=== PATIENT | male | born 1940 | race Caucasian/White ===

== ENCOUNTER 2017-05-23 13:08 | Emergency (ER) | payer OTHER ==
[~2017-05-23] VITALS: Ht 172.7 cm; Wt 95.2 kg
[2017-05-23] MEDS ORDERED: NORCO 5-325 TA1 EACH PO (13:38)
[2017-05-23] MEDS ORDERED: OMEPRAZOLE20 MG PO (13:38)
[2017-05-23] MEDS ORDERED: MAGNESIUM400 M1 PO (13:39)
[2017-05-23] MEDS ORDERED: LO-DOSE ASPIRIN81 MG PO (13:40)
== END 2017-05-23 17:05 | disposition home or self-care (01) ==
LOC: ED 13:08
DX: C78.7 Secondary malignant neoplasm of liver and intrahepatic bile duct (principal); C80.1 Malignant (primary) neoplasm, unspecified; F17.200 Nicotine dependence, unspecified, uncomplicated; K21.9 Gastro-esophageal reflux disease without esophagitis; Z79.82 Long term (current) use of aspirin; Z79.899 Other long term (current) drug therapy
CPT/HCPCS: 74177; 80053; 82248; 83690; 85025; 96374; 99284; J2270; Q9967

== ENCOUNTER 2017-06-23 16:08 | Inpatient (IN) | payer MEDICARE ==
[~2017-06-23] VITALS: Ht 172.7 cm; Wt 78.7 kg
[~2017-06-23 16:08] MED LIST: LO-DOSE ASPIRIN81 MG PO; MAGNESIUM400 M1 PO; NORCO 5-325 TA1 EACH PO; OMEPRAZOLE20 MG PO
--- NOTE | 2017-06-23 20:34 | NUR ---
PT ADMITTED AT 1925 FROM ED VIA STRETCHER. DX METASTASIDED LIVER CA. PT SEMICOOPERATIVE WITH ASSESSMENT, UNABLE TO GET PAST MEDICAL INFORMATION PT IS UNABLE TORECALL INFORMATION AND NO FAMILY IN ROOM AVAILABLE. PT SKIN AND SCLERA JAUNDICE. DRY DARK SCABS NOTED IN NARES AND UPPER LEFT, CORNER AND LOWER LEFT LIP, SCABS FRAGILE AND WITH MOIST SANGUINEOUS DRAINAGE PRESENT BOTH OLD AND NEW WHEN TRTYING TO CLEANTHEM WITH WARM WASH CLOTH. OLD FOOD PARTICLES STUCK IN TERRY TOO, UNABLE TO REMOVE ALL. INSIDE OF MOUTH SEEMS TO HAVE ALSO DRY AND FRESH SANGUINEOUS DISHCARGE, UNABLT TO FIND FROM WHERE, VERY SCAN AMOUNT PRESENT NOTED WHE DOING MOUTH CARE, POOR DENTAL CARE, MISSING TEETH. PT WAS COOPERATIVE WITH ORAL ASSESSMENT. WILL CONTINUE TO DO FREQUENT MOUTH CARE. PT ABD VERY LARGE AND ASCITIC, EDVIN, INCONTINENT OF BOWEL AND BLADDER, RED BUTTOCKS AREA WITH OLD, DRY BM REMMNANTES PRESENT ON ADMISSION, AREA CLEANSED AND LOTIONS APPLIED. DRY OLD SCAB OVER R SHOULDER, HEALING. R LOWER RIBS APPEARS PROTRUDING ABNORMAL, NO CREPITUS OR C/O PAIN FROM PAT AT THIS TIME NOTED OR OBSERVED DURING FLACC PAIN ASSESSMENT. RIGHT TOP HAND AREA AND INNER PALM DRY, RED SKIN ROUGH AND SCABBED OVER, DRY, MULTIPLE BRUISING OVER LEFT, LEFT UPPER, FRONTAL, RIGHT, BACK CHEST AND BACK AREA AND LOWER LEGS, ALL AREAS IN DIFFERENT STAGES OF HEALING. RED AREA OVER KNEE BONY PRIMINENCE AND LEFT MID UPPER CALF. DR KELLY INFORMED, NO NEW ORDERS AT THIS TIME
--- NOTE | 2017-06-24 00:11 | NUR ---
TURNED TO R SIDE, 2 PERSON ASSIST, INCONTINENT OF URINE, SEMICOOP WITH ASSESSMENT. PT ON HONEY THICK LIQUIDS, WAS ABLE TO REACH OVER RAILS AND GRAB LIQUIDS, HAD APPROX 100CC INTAKE, NO COUCH, NO S/SX ASPIRATIONS AT THIS TIME. HEEL PROTECTORS PLACED ON HEELS. PROCEDURES EXPLAINED TO PT,
--- NOTE | 2017-06-24 01:11 | NUR ---
pt restless, moaning and shouting, "take me back to correction", "Pf you cant take me back to [facility], then take her to correction" "I am going to anyway, take me back home". pt reoriented to place, and time, unable to assess read back teaching due to pt not talking after that. Medicated with 0.5mg Dilaudid.
--- NOTE | 2017-06-24 03:30 | NUR ---
PT HAD A RR RATE OF 32. CLINICAL CARE LEADER NOTIFYED. PT IS NOW ON 2L O2 NC FOR COMFORT.
--- NOTE | 2017-06-24 03:58 | NUR ---
PT INCONTINENT OF URINE, ATTENS CHANGED, LOTION TO CHAPARRITA AREA APPLIED. O2 APPLIED 2L nc NURSING JUDGEMENT, R 12-14, PT AWAKENS EASILY, TALKING "I WANT TO GO HOME, IF I CANT GO HOME SENT ME BACK TO [facility]", PT REORIOENTED, UNABLE TO PROCESS INFORMATION DUE TO CONFUSION. SKIN AND SCLERA JAUNDICED.
--- NOTE | 2017-06-24 05:51 | NUR ---
PT HAS SLEPT MOST OF THIS SHIFT. CONTINUES TO MAKE STATEMENTS OF "I AM READY TO , SEND ME HOME", "IF YOU ARE NOT GOING TO SEND ME HOME, SEND ME [facility], OR SEND HER (UNKNOWN PERSON) TO [facility]". MOUTH CARE DONE SEVERAL TIMES THIS SHIFT, CONTINUES TO HAVE CRUSTED SCABS OVER INSIDE NARES AND OVER LEFT UPPER AND LOWER LIP, NO FURTHER SANGUINEOUS DRAINAGE NOTED . SKIN AND SCLERA JAUNDICED. RESP 12-14 EARLIER THIS AM, O2 2L/NC WAS PLACED ON NURSGING JUDGEMENT, PT TAKES OFF, SPOT SATS 90-94%. HAS BEEN TURNED Q2H, LOTION TO RED CHAPARRITA AREA AND RED SCROTUM APPLIED. HAS BEEN INCONTINENT OF URINE, CLEAN ATTENS INPLACE. ABD LARGE ASCITIC, HAS FENTANYL PATCH 25MCG R SIDE. WAS MEDICATED WITH DILAUDID 0.5MG IV PER FLACC PAIN SCALE 5/10. CURRENTLY CALMER, RESTING, EYES CLOSED.
--- NOTE | 2017-06-24 06:43 | NUR ---
Pt resp 16, shallow, O2 tubing placed back in narees as he takes it off, spot check
--- NOTE | 2017-06-24 08:29 | NUR ---
PT CRYING OUT "OUCH", GIVEN 0.5 MG IV DILAUDID. PT INCONTINENT OF URINE, PERICARE PERFORMED, BARRIER CREAM APPLIED. PT REPOSITIONED TO RIGHT SIDE. PT DECLINING TO EAT AT THIS [place].
--- NOTE | 2017-06-24 11:32 | NUR ---
PT RESTLESS AND FIDGETING, MOANING. PT GIVEN 0.5 MG IV DILAUDID. PT INCONTINENT OF URINE, PERICARE PERFORMED. PT REPOSITIONED TO LEFT SIDE. FAMILY AT BEDSIDE, PROVIDED UPDATE OF NIGHT AND MORNING CARE.
--- NOTE | 2017-06-24 12:49 | NUR ---
DIRECTOR PARK NOTFIED NETWORK LEAD THAT PT APPEARES . NOTIFIED, TIME OF AT 1240. PT REPOSITIONED IN BED. TO CALL FAMILY.
--- NOTE | 2017-06-24 14:30 | NUR ---
FINAL ASSEMBLY WORKER WAS CALLED IN BECAUSE PT HAD . FAMILY'S BACK TENDER PAPER MACHINE WAS ALREADY HERE WHEN I ARRIVED. FINAL ASSEMBLY WORKER ALICIA WILSON WAS ALSO CALLED IN TO CARE FOR FAMILY. FAMILY DECIDED ON [facility] FOR ARRANGEMENTS AND THE BODY WAS SENT THERE. PRAYED WITH FAMILY AND OTHER SPIRITUAL CARE STAFF AT TIME OF PT VISIT.
== END 2017-06-24 12:40 | DRG 435 ==
LOC: ED 16:08 → MS 18:55
PROVIDERS: ADMIT Internal Medicine
DX: C78.7 Secondary malignant neoplasm of liver and intrahepatic bile duct (principal); G93.41 Metabolic encephalopathy; R18.0 Malignant ascites; N17.9 Acute kidney failure, unspecified; C78.00 Secondary malignant neoplasm of unspecified lung; G89.3 Neoplasm related pain (acute) (chronic); Z66 Do not resuscitate; Z51.5 Encounter for palliative care
CPT/HCPCS: 80053; 85025; J1170; J7030; J7120